=== PATIENT | female | born 1940 | race Hispanic/Latino ===

== ENCOUNTER → 2019-11-09 | Outpatient (CLI) | payer MEDICARE ==
--- NOTE | 2019-11-09 14:04 | Diagnostic Imaging Report ---
EXAM: US RENAL RETROPERITONEAL COMP DATE: 11/09/2019 1:38 PM INDICATION: Disorder of urinary system COMPARISON: None FINDINGS: The right kidney is normal in size measuring 10.0 x 4.5 x 5.1 cm with cortical thickness of 1.4 cm. Cortical echogenicity is within normal limits. There is no evidence for solid renal mass, hydronephrosis, or shadowing calculi. The left kidney is normal in size measuring 9.4 x 5.0 x 4.5 cm with cortical thickness of 1.5 cm. Cortical echogenicity is within normal limits. There is no evidence for solid renal mass, hydronephrosis, or shadowing calculi. The urinary bladder is unremarkable. Prevoid volume is 163 cc. Bilateral ureteral jets are noted. Incidentally noted is a cyst within the right hepatic lobe measuring up to 2.5 cm. IMPRESSION: Unremarkable renal ultrasound examination. Signed by: Dr. Nickolas Bergeron MD on 11/09/2019 2:00 PM
--- NOTE | 2019-11-09 14:16 | Diagnostic Imaging Report ---
EXAM: ABDOMEN-1VIEW (KUB) DATE: 11/09/2019 1:45 PM INDICATION: Disorder of the urinary system COMPARISON: None FINDINGS/IMPRESSION: Bowel gas pattern is nonobstructive. No pathologically dilated loops of bowel are identified. No intraperitoneal free air is appreciated on this single view examination. No radiographically evident renal calculi are appreciated. Multiple calcifications are noted projecting over the lower abdomen and pelvis bilaterally which may represent phleboliths. A ureteral stone cannot be entirely excluded on the basis of this examination. There are degenerative changes of the visualized spine and bilateral hips. No acute osseous abnormality is identified. Signed by: Dr. Nickolas Bergeron MD on 11/09/2019 2:12 PM
== END ==
LOC: US 13:24
PROVIDERS: ATTEND Urology
DX: N39.0 Urinary tract infection, site not specified (principal)
CPT/HCPCS: 74018; 76770

== ENCOUNTER 2020-11-19 13:54 | Outpatient (RCR) | payer MEDICARE | END 2020-11-23 | LOC: PT 13:54 | PROVIDERS: ATTEND Specialist | DX: M16.11 Unilateral primary osteoarthritis, right hip (principal) ==

== ENCOUNTER 2020-12-13 13:00 | Outpatient (RCR) | payer MEDICARE | END 2020-12-24 | LOC: PT 13:00 | PROVIDERS: ATTEND Specialist | DX: M16.11 Unilateral primary osteoarthritis, right hip (principal) ==

== ENCOUNTER → 2020-12-31 | Outpatient (CLI) | payer MEDICARE | LOC: MRI 11:00 | PROVIDERS: ATTEND Specialist | DX: S83.221A Peripheral tear of medial meniscus, current injury, right knee, initial encounter (principal) ==

== ENCOUNTER 2021-02-13 09:35 | Emergency (ER) | payer MEDICARE ==
[~2021-02-13] VITALS: Ht 147.3 cm; Wt 79.8 kg
[2021-02-13] MEDS ORDERED: IBUPROFEN600 MG PO (11:06)
[2021-02-13] MEDS ORDERED: KETOROLAC TROMETHAMINE 30 MG/ML VIAL IM ONE (11:15)
== END 2021-02-13 11:15 | disposition home or self-care (01) ==
LOC: ER 10:00
DX: M25.551 Pain in right hip (principal); G89.29 Other chronic pain; I10 Essential (primary) hypertension; I25.10 Atherosclerotic heart disease of native coronary artery without angina pectoris
CPT/HCPCS: 99283; J1885

== ENCOUNTER 2021-02-16 11:51 | Emergency (ER) | payer MEDICARE ==
[~2021-02-16] VITALS: Ht 147.3 cm; Wt 79.8 kg
[~2021-02-16 11:51] MED LIST: IBUPROFEN600 MG PO
== END 2021-02-16 13:09 | disposition home or self-care (01) ==
LOC: ER 12:00
DX: R10.31 Right lower quadrant pain (principal); G89.29 Other chronic pain; I10 Essential (primary) hypertension; E78.5 Hyperlipidemia, unspecified; I25.10 Atherosclerotic heart disease of native coronary artery without angina pectoris; F41.9 Anxiety disorder, unspecified
CPT/HCPCS: 99283